=== PATIENT | female | born 1955 | race Caucasian/White ===

== ENCOUNTER 2019-06-28 10:26 | Outpatient (CLI) | payer OTHER, SELFPAY ==
--- NOTE | 2019-06-28 10:35 | XR_ITS ---
WS: [id number] LEFT WRIST: 3 VIEW(S) TECHNIQUE: PA, oblique and lateral. HISTORY: wrist fracture COMPARISON: 06/13/2019 Imaging performed through cast material. Radial metaphyseal fracture in good position alignment. Ulna r styloid fracture is difficult to visualize due to the cast. Degenerative changes in the wrist. No soft tissue swelling. XR/XR wrist LT min 3V* [id number] IMPRESSION: Interval casting LEFT wrist with radial and ulnar fractures in good position an d alignment.
== END 2019-06-28 10:27 | disposition home or self-care (01) ==
LOC: RAD 10:32
PROVIDERS: Family Provider Nurse Practitioner Family; Visit Provider Physician Assistant Medical
DX: S52.92XA Unspecified fracture of left forearm, initial encounter for closed fracture; X58.XXXA Exposure to other specified factors, initial encounter
CPT/HCPCS: 73110

== ENCOUNTER → 2019-07-22 10:02 | Outpatient (BNVA) | payer OTHER, SELFPAY | PROVIDERS: Family Provider Nurse Practitioner Family; Visit Provider Orthopaedic Surgery | DX: S52.502A Unspecified fracture of the lower end of left radius, initial encounter for closed fracture (principal); S52.602A Unspecified fracture of lower end of left ulna, initial encounter for closed fracture; S52.531A Colles' fracture of right radius, initial encounter for closed fracture; X58.XXXA Exposure to other specified factors, initial encounter | CPT/HCPCS: 73110 ==

== ENCOUNTER → 2019-08-19 09:56 | Outpatient (BNVA) | payer OTHER, SELFPAY | PROVIDERS: Family Provider Nurse Practitioner Family; Visit Provider Orthopaedic Surgery | DX: S52.532A Colles' fracture of left radius, initial encounter for closed fracture (principal); X58.XXXA Exposure to other specified factors, initial encounter | CPT/HCPCS: 73110 ==

== ENCOUNTER → 2023-12-11 10:05 | Outpatient (BNVA) | payer MEDICARE, MEDICAID, SELFPAY | PROVIDERS: Family Provider Nurse Practitioner Family; PCP Family Medicine; Visit Provider Physician Assistant | DX: S62.647A Nondisplaced fracture of proximal phalanx of left little finger, initial encounter for closed fracture; W23.0XXA Caught, crushed, jammed, or pinched between moving objects, initial encounter | CPT/HCPCS: 73130 ==

== ENCOUNTER 2023-12-11 10:44 | Outpatient (CLI) | payer MEDICARE, MEDICAID, SELFPAY | END 2023-12-11 10:45 | disposition home or self-care (01) | LOC: SOT 10:47 | PROVIDERS: Family Provider Nurse Practitioner Family; PCP Family Medicine; Visit Provider Student in an Organized Health Care Education/Training Program | DX: S62.647A Nondisplaced fracture of proximal phalanx of left little finger, initial encounter for closed fracture (principal); W23.0XXA Caught, crushed, jammed, or pinched between moving objects, initial encounter | CPT/HCPCS: 97760; 99203; L3808 ==

== ENCOUNTER → 2024-04-28 13:24 | Outpatient (BNVA) | payer MEDICARE, MEDICAID, SELFPAY | PROVIDERS: Family Provider Nurse Practitioner Family; PCP Family Medicine; Visit Provider Podiatrist Foot & Ankle Surgery | DX: Z78.9 Other specified health status (principal); S92.414D Nondisplaced fracture of proximal phalanx of right great toe, subsequent encounter for fracture with routine healing; X58.XXXD Exposure to other specified factors, subsequent encounter | CPT/HCPCS: 73630; 99203 ==

== ENCOUNTER → 2024-10-12 09:05 | Outpatient (BNVA) | payer MEDICARE, MEDICAID, SELFPAY | PROVIDERS: Family Provider Nurse Practitioner Family; PCP Family Medicine; Visit Provider Physician Assistant | DX: S52.501A Unspecified fracture of the lower end of right radius, initial encounter for closed fracture (principal); W23.1XXA Caught, crushed, jammed, or pinched between stationary objects, initial encounter | CPT/HCPCS: 73110; 99214 ==

== ENCOUNTER 2024-10-12 11:24 | Outpatient (CLI) | payer MEDICARE, MEDICAID, SELFPAY | END 2024-10-12 11:25 | disposition home or self-care (01) | LOC: SPT 11:25 | PROVIDERS: Family Provider Nurse Practitioner Family; PCP Family Medicine; Visit Provider Physician Assistant | DX: Z46.89 Encounter for fitting and adjustment of other specified devices (principal); S52.591D Other fractures of lower end of right radius, subsequent encounter for closed fracture with routine healing; X58.XXXD Exposure to other specified factors, subsequent encounter | CPT/HCPCS: L3908 ==

== ENCOUNTER 2024-10-13 12:53 | Day surgery (SDC) | payer MEDICARE, MEDICAID, SELFPAY ==
[2024-10-13] VITALS (10 sets, daily range): BP systolic 145–173; BP diastolic 82–100; PULSE 88–104; RESP 10–18; TEMP 36.5–36.8; O2SAT 90–98; BMI 27.1
--- NOTE | 2024-10-13 | XR_ITS ---
WS: [id number] XR wrist RT min 3V* [id number] REASON FOR EXAM: UJAN DIEGO IMAGES FINDINGS: Plate and screw fixation of distal radial metaphyseal oblique extra-articular fracture. Surgical appliances intact and in proper position and alignment. Fracture fragments in good apposition and alignment. XR/XR wrist RT min 3V* [id number] IMPRESSION: Right wrist fracture with internal fixation as above.
--- NOTE | 2024-10-13 13:16 | W.PM.OPSUD ---
Surgery/Procedure H&P Update DATE OF PROCEDURE: October 13, 2024 DATE H&P PERFORMED: 10/12/24 H&P UPDATE INFORMATION: I have reviewed H&P completed within last 30 days, I have examined patient prior to procedure and No changes to prior documentation CHANGES TO PREVIOUS DOCUMENTATION: Once again reviewed patient's treatment options in detail about as far as nonoperative and operative invention. At this point in time she continues to have significant pain she does have a volar Varma shear fragment with instability she does have considerable translation at this point time we talked about her options in detail as far as nonoperative and operative invention and through shared decision making for pain control as well as goals for earlier mobilization as well as improvement in alignment she would like to pursue surgical intervention she understands the ins and outs procedure risk benefits complication alternatives of surgery at this point time elects proceed with surgical intervention all questions answered this time. PREOP DIAGNOSIS: Right distal radius fracture PRIMARY INDICATION FOR PROCEDURE: Right distal radius fracture displaced/translated PLANNED PROCEDURE: Operation Date: 10/13/24 14:30 Proposed Procedures p ORIF Distal Radius(Right) - Storm Pickering DO
--- NOTE | 2024-10-13 13:23 | ANES.PREANE2 ---
Pre-Anesthetic Assessment Height/Weight: Height 5 ft 2 in Preop Diagnosis: Right distal radius fracture Operation Date: 10/13/24 14:30 Proposed Procedures p ORIF Distal Radius(Right) - Storm Pickering DO Was Beta Александр taken within 24 hours: N/A Was Clonidine taken within 24 hours: N/A Social Tobacco and No alcohol Exam alert, oriented x 3, clear to auscultation bilaterally and regular rate & rhythm Airway Submandibular: within normal limits Cervical ROM: within normal limits Mallampati: Class III Dentition: false Anesthetic Plan ASA status: 3 Anesthesia: General Other: Patient arrives in a wheelchair [facility] No prior issues with anesthesia N.p.o. 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 History of hypertension on lisinopril On chronic hydrocodone for pain Plan for general anesthesia with preop nerve block Medications/Allergies Home Medications ?Medication ?Instructions ?Recorded ?Confirmed ?Last Taken ?Type Left Ulnar Gutter Fast Form #1 ea 12/11/23 10/12/24 Unknown Rx left custom theraplastic unlar #1 ea 12/11/23 10/12/24 Unknown Rx gutter splint hydrocodone 5 mg-acetaminophen 325 1 tab PO TID 04/28/24 10/12/24 10/12/24 History mg tablet ibuprofen 400 mg tablet 400 mg PO DAILY PRN Pain 04/28/24 10/12/24 3 Days Ago History ~10/09/24 Saccharomyces boulardii 250 mg 250 mg PO BID 07/19/24 10/12/24 10/11/24 History capsule (Probiotic (S.boulardii)) aspirin 81 mg tablet,delayed 81 mg PO DAILY 07/19/24 10/12/24 10/11/24 History release (Adult Aspirin Regimen) cetirizine 5 mg tablet (Allergy 5 mg PO DAILY PRN allergies 07/19/24 10/12/24 10/12/24 History Relief (cetirizine)) gabapentin 300 mg capsule 300 mg PO BID 07/19/24 10/12/24 10/12/24 History lisinopril 5 mg tablet 5 mg PO DAILY 07/19/24 10/12/24 10/12/24 History ondansetron 4 mg disintegrating 4 mg PO Q4H PRN Nausea And Vomiting 07/19/24 10/12/24 3 Months Ago History tablet ~07/13/24 amoxicillin 875 mg-potassium 1 tab PO BID 10/12/24 10/12/24 10/12/24 History clavulanate 125 mg tablet cyclobenzaprine 5 mg tablet 5 mg PO TID PRN Muscle Spasm 10/12/24 10/12/24 2 Weeks Ago History ~09/28/24 duloxetine 60 mg capsule,delayed 60 mg PO DAILY 10/12/24 10/12/24 10/12/24 History release right wrist cock up brace #1 ea 10/12/24 10/12/24 Unknown Rx Allergies Allergy/AdvReac Type Severity Reaction Status Date / Time shellfish derived Allergy Unknown Unknown Verified 10/12/24 13:54 procaine (From Novocain) Allergy dizziness Verified 10/12/24 13:54 [facility] Anesthesia Medical History (Updated 10/12/24 @ 10:36 by BUTCH Gillette) Retention of urine Neuromuscular dysfunction of bladder Mild protein-calorie malnutrition Neuralgia and neuritis GERD (gastroesophageal reflux disease) Hypertension Vitamin deficiency, unspecified Anemia Insomnia, unspecified Pain, unspecified Guillain Cantu? syndrome Colles' fracture Social History Smoking and tobacco/nicotine status: current every day tobacco/nicotine user Alcohol intake: current Alcohol intake frequency: few times a month Substance/Drug Use: never
--- NOTE | 2024-10-13 13:45 | SUR.PREOP ---
4CM AREA OF ERYTHEMA ON RIGHT FACE .PT STATES SHE WAS BITTEN BY A SPIDER AND HAS BEEN ON ORAL ANTIBIOTICS.
[2024-10-13] MEDS: acetaminophen 1,000 MG/100 ML PIGGYBACK 400 MG IV (13:54)
[2024-10-13] MEDS: ceFAZolin 2,000 MG in sodium chloride 0.9% (plus) 50 ML 100 MG IV (14:12)
--- NOTE | 2024-10-13 15:19 | P.BOP_ITS ---
Date of Procedure: 10/13/2024 Surgeon: Storm Pickering DO [employer]er Operator(s): Baron Pickering PA-C Procedure(s) performed: Right distal radius open reduction internal fixation (2 part extra-articular) Findings of the procedure(s): Patient underwent procedure as planned without issues or complications Estimated blood loss: 5 mL Specimen(s) removed: None Post-operative diagnosis: Right distal radius fracture displaced 2 part extra- articular
--- NOTE | 2024-10-13 15:20 | P.OP_ITS ---
Operative Report Date of procedure: October 13, 2024 Surgeon: Storm Pickering DO Production Cost Estimator: Baron Pickering PA-C: PA was necessary for assistance in this case with hand positioning to execute the procedure, retraction and protection of neurovascular structures as well as to assist with wound closure and dressing application. Procedure: Preop Diagnosis ?Right?distal?radius fracture- 2-part extra articular? Procedure: Post-op diagnosis: Same, 2 part Extra-articular Procedure done: Right?distal?radius open reduction internal fixation, 2-part Extra-articular Implants: Arthrex volar narrow 3-hole locking plate implant kit system Surgeon: Storm Pickering DO Anesthesia: General and nerve Block (Regional) Estimated blood loss: 5 mL Tourniquet time: 29 minutes IV fluids: 500mL Complications: None Findings: See operative report narrative Condition: stable Disposition: same day Brief History: Patient is a 68-year-old female who presented to my office for a Vebyk-scazdwcsz-gpwaywcal Right?distal?radius fracture.? Patient has significant volar shear unstable and translation and loss of height. Her right hand and wrist is difficulty her function given she uses this for wheelchair at this point in timethrough shared decision making patient like to proceed with a Right?distal?radius ORIF.? We had a detailed discussion in the office about nonoperative and operative intervention.? At this point time I feel through shared decision? best option would be open reduction internal fixation. as result through shared decision making patient would like to proceed with ORIF Right?distal?radius fracture.? Of note as stated in H&P update she had a spider bite which is already being treated and greatly improved. Detail the risk benefits complication alternatives to treatment option.? Understanding risk for surgery patient elects to proceed with surgical intervention.? All questions been answered at this time. Procedure: Patient seen and evaluated in the preoperative holding area.? Consent reviewed and signed with patient.? Correct extremities were marked and consent was reviewed and signed.? Patient was seen and evaluated by anesthesia department.? Underwent regional anesthesia. Once cleared for surgery pt was taken back to the operative suite.? Patient was then transported into the operative suite and kept on the OR gurney, all bony prominences well-padded patient was appropriate secured to bed in supine position.? An armboard was applied to the Right upper extremity.? The Right upper extremity had a nonsterile tourniquet applied.? Patient subsequently was then prepped and draped in standard orthopedic fashion she underwent anesthesia per the anesthesia department.? A final timeout was performed.? Patient received appropriate preoperative antibiotics. Esmarch was used exsanguinate the Right upper extremity and tourniquet was insufflated to 250 mmHg. A standard modified FCR volar approach was performed to the Right?distal?radius.? Sharp scalpel incision through skin and subcutaneous tissu e.? I then switched to Littler dissection scissors identify the FCR tendon releases out of the sheath both proximally and?distally mobilized the tendon ulnarly and then subsequently incised the floor of the FCR tendon sheath with care to just incise the floor.? I then bluntly sweep the FPL tendon muscle belly ulnarly and placed blunt self-retaining retractor.? At this point time I direct visualization of the pronator quadratus which was incised in standard L fashion off the radial and?distal?border in the?distal?radius and fracture site was scraped clean of interposed muscle belly.? I then identified the 2-part Extra- articular?distal?radius fracture.? This was subsequently opened above and freed of interposing muscle belly as well as periosteum and fracture hematoma.? I did have to utilize my [place] which was placed through the fracture pattern and disengage the fracture and performed manual manipulation and anatomic reduction of the?distal?radius fracture.? Given the fracture pattern was volar Varma shear this was allowed to be buttressed with the plate. ?Once satisfied with reduction and had appropriate anatomic reduction of the volar cortex.? This was confirmed with mini C arm in multiple orthogonal imaging.? At this point time? I selected a Arthrex anatomic?distal?radius plate utilizing a narrow 3-hole plate implant kit system which would have appropriate spread?distally.? This was then placed up to the?distal?radius while maintaining my reduction, pins were placed?distally and proximally to confirm appropriate placement of the plate along the?distal?radius.? Minor adjustments were made and once I was satisfied I then subsequently drilled a bicortical 2.7 screw proximally in the oblong hole to allow for appropriate sliding of the?distal?radius plate appropriately to perfect position on the?distal?radius.? This had excellent fixation and purchase and brought the plate to bone.? While maintaining my reduction I then confirmed in multiple orthogonal imaging that my plate was in appropriate position.? Once satisfied with my position I then subsequently placed the peek targeting guide on the?distal?locking screws with Arthrex.? The locking guide was then subsequently loaded and I subsequently drilled and placed a fully threaded cortical screw to compress the plate to bone for the?distal?fracture fragment.? This was performed with plan to then remove this and placed a shorter locking screw had bicortical fixation with excellent purchase and appropriate reduction of my volar tilt and bringing plate to bone of the?distal?fragment and plate.? Once I was satisfied with my plate position as well as reduction of the?distal?radius which was confirmed on AP oblique and lateral imaging I then subsequently drilled measured and placed 3 locking screws around this cortical screw.? Then I subsequently removed the cortical screw and placed a shorter locking screw that did not penetrate the dorsal cortex.?? This completed my?distal?fixation.? I did utilize mini C arm to confirm appropriate placement of the screws these were all within the?distal?radius and no joint involvement within the radiocarpal joint or the DRUJ.? These had appropriate subchondral sup port and maintenance of reduction and fixation of the?distal?radius fracture.? ?I then turned my attention proximally and then I screwed in the locking guides for my final to screws proximally these were then subsequently drilled measured and appropriate length locking screws were then placed proximally with excellent fixation and locking technology into the plate.? This completed my construct.? The peek guide was subsequently removed and final imaging of the Right?distal?radius open reduction internal fixation was taken of AP lateral as well and is orthogonal imaging.? I then took a inclination view which showed my radial styloid screw was out of the penetration of the joint.? All my?distal?screws were appropriate length did not penetrate dorsal cortex and did not penetrate the joint.? This completed my fixation.? Smooth wrist range of motion was then noted with no evidence of clicking. Wrist was then taken through pronation supination and stressed the DRUJ which was found to be stable.? The wound was then thoroughly irrigated.? Tourniquet was then subsequently deflated.? Hemostasis satisfactory with bipolar electrocautery.? I then subsequently placed interrupted 3-0 Vicryl sutures for subcutaneous tissue and then subsequently placed a nylon the skin for closure.? Incision was then dressed with Xeroform 4 x 4's Kerlix cast padding and a volar Ortho-Glass splint was then applied with Yohan wrap and placed in a sling.? Disposition: Patient taken to PACU in stable condition recovering well receive appropriate discharge instructions as well as pain medication postoperatively.? Maintain splint until follow-up.? Nonweightbearing to operative upper extremity We will follow-up with Ortho in the office in 2 weeks.? If any questions or concerns feel free to contact the office.
--- NOTE | 2024-10-13 15:52 | PM.PACU ---
PACU note Narrative: Patient is a 68-year-old female just underwent a right distal radius ORIF. Patient transferred to PACU in stable condition. Pain is well controlled. Dressing and splint on hand is dry and in place. Patient's fingers are warm and well-perfused. Patient can wiggle fingers. normal cap refill under 2 seconds. Patient has normal elbow range of motion. Exam: awake Disposition: discharged
--- NOTE | 2024-10-13 17:01 | ANE.PACU2 ---
Inpatient post-anesthesia follow up: Airway intact: Yes Vital signs: Temperature 97.8 F Pulse Rate 88 Respiratory Rate 17 Blood Pressure 154/90 Pulse Oximetry 91 Oxygen Delivery Me thod Room Air Oxygen Flow Rate 2 Fraction of Inspir ed Oxygen Hydration adequate: Yes Nausea and vomiting: No Pain level: 2 Mental status: Baseline
== END 2024-10-13 17:00 | disposition home or self-care (01) ==
PROVIDERS: PCP Electrodiagnostic Medicine; Visit Provider Student in an Organized Health Care Education/Training Program
PROC: (CPT 25607; principal; 2024-10-13 14:30)
DX: S52.551A Other extraarticular fracture of lower end of right radius, initial encounter for closed fracture (principal); W23.2XXA Caught, crushed, jammed or pinched between a moving and stationary object, initial encounter; G61.0 Guillain-Barre syndrome; I10 Essential (primary) hypertension; Z79.82 Long term (current) use of aspirin; M79.2 Neuralgia and neuritis, unspecified; K21.9 Gastro-esophageal reflux disease without esophagitis; D64.9 Anemia, unspecified
CPT/HCPCS: 25607; 73110; 76000; C1713; J0131; J0690; J1100; J1171; J2405; J2704; J3010; J7030; J9999

== ENCOUNTER → 2024-10-28 12:17 | Outpatient (BNVA) | payer MEDICARE, MEDICAID, SELFPAY | PROVIDERS: PCP Electrodiagnostic Medicine; Visit Provider Physician Assistant | DX: S52.501D Unspecified fracture of the lower end of right radius, subsequent encounter for closed fracture with routine healing (principal); X58.XXXD Exposure to other specified factors, subsequent encounter; Z98.890 Other specified postprocedural states | CPT/HCPCS: 73110 ==

== ENCOUNTER 2024-10-28 13:05 | Outpatient (CLI) | payer MEDICARE, MEDICAID, SELFPAY | END 2024-10-28 13:06 | disposition home or self-care (01) | LOC: SOT 13:05 | PROVIDERS: PCP Electrodiagnostic Medicine; Visit Provider Physician Assistant | DX: Z46.89 Encounter for fitting and adjustment of other specified devices (principal); S52.501A Unspecified fracture of the lower end of right radius, initial encounter for closed fracture; W22.01XA Walked into wall, initial encounter | CPT/HCPCS: 97760; L3906 ==

== ENCOUNTER → 2024-11-11 08:20 | Outpatient (BNVA) | payer MEDICARE, MEDICAID, SELFPAY | PROVIDERS: PCP Electrodiagnostic Medicine; Visit Provider Physician Assistant | DX: Z98.890 Other specified postprocedural states (principal); Z87.81 Personal history of (healed) traumatic fracture | CPT/HCPCS: 73110; 99024 ==

== ENCOUNTER → 2024-11-25 10:15 | Outpatient (BNVA) | payer MEDICARE, MEDICAID, SELFPAY | PROVIDERS: PCP Electrodiagnostic Medicine; Visit Provider Physician Assistant | DX: Z98.890 Other specified postprocedural states (principal); Z87.81 Personal history of (healed) traumatic fracture | CPT/HCPCS: 73110 ==

== ENCOUNTER 2024-11-25 11:26 | Outpatient (CLI) | payer MEDICARE, MEDICAID, SELFPAY | END 2024-11-25 11:27 | disposition home or self-care (01) | LOC: SPT 11:27 | PROVIDERS: PCP Electrodiagnostic Medicine; Visit Provider Physician Assistant | DX: Z47.89 Encounter for other orthopedic aftercare (principal); Z98.890 Other specified postprocedural states; Z87.81 Personal history of (healed) traumatic fracture | CPT/HCPCS: 99024; L3908 ==

== ENCOUNTER → 2024-12-21 11:05 | Outpatient (BNVA) | payer MEDICARE, MEDICAID, SELFPAY | PROVIDERS: PCP Electrodiagnostic Medicine; Visit Provider Physician Assistant | DX: Z98.890 Other specified postprocedural states (principal) | CPT/HCPCS: 73110; 99024 ==